=== PATIENT | female | born 1980 | race Caucasian/White ===

== ENCOUNTER 2023-09-23 07:26 | Outpatient (OUT) | payer MEDICARE, OTHER, MEDICAID, SELFPAY ==
[2023-09-23 09:29] LABS: Free T4 1.03 ng/dL (0.76-1.46)
[2023-09-23 09:38] LABS: Chol HDL Ratio 3.2; Cholesterol 254 mg/dL (<=200); Free T3 2.25 pg/mL (2.18-3.98); Glucose 77 mg/dL (74-106); HDL Cholesterol 80 mg/dL (40-60); Thyroid Stimulating Hormone 4.219 uIU/mL (0.358-3.740); Triglycerides 53 mg/dL (<=150); VLDL CHOLESTEROL 10.6 mg/dL
== END 2023-09-23 07:27 | disposition home or self-care (01) ==
LOC: LAB 07:26
PROVIDERS: PCP Family Medicine; Visit Provider Family Medicine
DX: E78.2 Mixed hyperlipidemia (principal); E06.3 Autoimmune thyroiditis; R73.01 Impaired fasting glucose; Z79.899 Other long term (current) drug therapy
CPT/HCPCS: 36415; 80061; 82947; 84439; 84443; 84481

== ENCOUNTER 2024-10-31 12:02 | Emergency (ER) | payer MEDICARE, OTHER, MEDICAID, SELFPAY ==
[2024-10-31 12:05] VITALS: BP 137/95; PULSE 76; TEMP 36.6; O2SAT 98; BMI 32.0
--- NOTE | 2024-10-31 12:05 | XR_ITS ---
The [address] [address] Patient Name: EZEQUIEL LEONE MRN: [id number] date: 1980 Sex: F Assigned Patient Location: ER Current Patient Location: ER Accession/Order Number: [id number] Exam Date: 10/31/2024 12:20 Report Date: 10/31/2024 13:12 At the request of: KARUNA KNUTSON Procedure: XR soft tissue neck EXAMINATION: XR chest 2V, XR soft tissue neck HISTORY: poss FB COMPARISON: No relevant comparison available. FINDINGS: LUNGS: No significant pulmonary parenchymal abnormalities. VASCULATURE: No increased pulmonary vasculature. PLEURA: No pneumothorax, effusion, or pleural thickening. CARDIAC: No cardiomegaly or cardiac silhouette abnormality. MEDIASTINUM: No visible mass or adenopathy. BONES: No fracture or visible bone lesion. OTHER: Unremarkable neck soft tissues. Reversal of normal lordotic curvature cervical spine. XR/XR soft tissue neck IMPRESSION: 1. No radiopaque foreign body within the neck soft tissues or chest. 2. No acute findings. Electronically authenticated by: SHASHANK CLINE Date: 10/31/2024 13:12
--- NOTE | 2024-10-31 12:05 | XR_ITS ---
The [address] [address] Patient Name: EZEQUIEL LEONE MRN: [id number] date: 1980 Sex: F Assigned Patient Location: ER Current Patient Location: ER Accession/Order Number: [id number] Exam Date: 10/31/2024 12:20 Report Date: 10/31/2024 13:12 At the request of: KARUNA KNUTSON Procedure: XR chest 2V EXAMINATION: XR chest 2V, XR soft tissue neck HISTORY: poss FB COMPARISON: No relevant comparison available. FINDINGS: LUNGS: No significant pulmonary parenchymal abnormalities. VASCULATURE: No increased pulmonary vasculature. PLEURA: No pneumothorax, effusion, or pleural thickening. CARDIAC: No cardiomegaly or cardiac silhouette abnormality. MEDIASTINUM: No visible mass or adenopathy. BONES: No fracture or visible bone lesion. OTHER: Unremarkable neck soft tissues. Reversal of normal lordotic curvature cervical spine. XR/XR chest 2V IMPRESSION: 1. No radiopaque foreign body within the neck soft tissues or chest. 2. No acute findings. Electronically authenticated by: SHASHANK CLINE Date: 10/31/2024 13:12
--- NOTE | 2024-10-31 12:13 | PC.NURSE ---
Patient is non verbal, per NH report patient was coughing and drooling. On arrival patient is sitting up on cot, awake and alert, no coughing, respirations even and non labored.
--- NOTE | 2024-10-31 12:24 | ED.GENADUL1 ---
HPI HPI - General Adult General Chief complaint: Shortness of Breath/Dyspnea Stated complaint: choking Time Seen by Provider: 10/31/24 12:05 Source: medical record Mode of arrival: ambulance History of Present Illness HPI narrative: Patient presents to ED after possible choking episode. Patient has developmental delay and she is at a care facility which is new to her. They are not really familiar with her. Apparently she had a coughing episode and they were concerned that maybe she was choking however after the coughing episode she has been completely fine. She is not hypoxic or in any distress. Patient is drooling but I did speak with the family and they said this is not abnormal for her to have drooling. Patient does not have any stridor or respiratory distress. No other complaints at this time. Patient is nonverbal Related Data Home Medications ?Medication ?Instructions ?Recorded ?Confirmed acetaminophen 325 mg tablet 650 mg PO Q6H PRN fever or pain 10/31/24 10/31/24 (Tylenol) benztropine 1 mg tablet 1 mg PO BID 10/31/24 10/31/24 melatonin 10 mg capsule 10 mg PO DAILY 10/31/24 10/31/24 miconazole nitrate 2 % topical 1 applic topical BID 10/31/24 10/31/24 powder (Antifungal (miconazole)) oxcarbazepine 150 mg tablet 150 mg PO BID 10/31/24 10/31/24 pravastatin 40 mg tablet 40 mg PO DAILY 10/31/24 10/31/24 temazepam 15 mg capsule (Restoril) 15 mg PO .QHS 10/31/24 10/31/24 topiramate 100 mg tablet 100 mg PO QAM 10/31/24 10/31/24 topiramate 200 mg tablet (Topamax) 200 mg PO QPM 10/31/24 10/31/24 Allergies Allergy/AdvReac Type Severity Reaction Status Date / Time No Known Drug Allergies Allergy Verified 10/31/24 12:14 Opioid HPI Opioid Management Most Recent Opioid Data: No Data to Display Review of Systems ROS Status of ROS 10 or more systems reviewed and unremarkable except as noted in history and below Exam Narrative Exam Narrative: Time Seen: [] Vital Signs: [Per nurse's notes.] General: [Alert] Skin: [Warm, dry, no rash.] Head: [Normocephalic, atraumatic.] Neck: [Supple, trachea midline.] Drooling Eye: [Pupils are equal, round and reactive to light, extraocular movements are intact, normal conjunctiva.] Ears, nose, mouth and throat: oral mucosa moist. No evidence of foreign body in the mouth or posterior pharynx on exam Cardiovascular: [Regular rate and rhythm, no murmur.] Respiratory: [Lungs are clear to auscultation, respirations are non-labored, breath sounds are equal.] Chest wall: [No tenderness, no deformity.] Gastrointestinal: [Soft, nontender, non distended, normal bowel sounds.] no focal neurological deficit observed.] Constitutional Vital Signs, click to edit/add: Last Vital Signs Temp 97.8 F 10/31/24 12:05 Pulse 76 10/31/24 12:05 Resp 18 10/31/24 12:05 BP 137/95 H 10/31/24 12:05 Pulse Ox 98 10/31/24 12:05 O2 Del Method Room Air 10/31/24 12:05 Course Vital Signs Vital signs: Vital Signs Temperature 97.8 F 10/31/24 12:05 Pulse Rate 76 10/31/24 12:05 Respiratory Rate 18 10/31/24 12:05 Blood Pressure 137/95 H 10/31/24 12:05 Pulse Oximetry 98 10/31/24 12:05 Oxygen Delivery Method Room Air 10/31/24 12:05 Temperature 97.8 F 10/31/24 12:05 Pulse Rate 76 10/31/24 12:05 Respiratory Rate 18 10/31/24 12:05 Blood Pressure 137/95 H 10/31/24 12:05 Pulse Oximetry 98 10/31/24 12:05 Oxygen Delivery Method Room Air 10/31/24 12:05 Medical Decision Making MDM Narrative Medical decision making narrative: I spoke to family and they state that patient does drool often. Her neck x-ray and chest x-ray were negative for any obvious acute obstructions. The patient has been comfortable no respiratory distress no hypoxia. No evidence of any airway obstruction. Patient will be sent back to her facility. Family was updated. Differential Diagnosis Differential Diagnosis: Airway obstruction esophageal obstruction cough Imaging Data Chest x-ray: Radiologist's impression: ITS Impressions Chest X-Ray 10/31/24 12:05 IMPRESSION: 1. No radiopaque foreign body within the neck soft tissues or chest. 2. No acute findings. Electronically authenticated by: SHASHANK CLINE Date: 10/31/2024 13:12 Soft Tissue Neck X-Ray 10/31/24 12:05 IMPRESSION: 1. No radiopaque foreign body within the neck soft tissues or chest. 2. No acute findings. Electronically authenticated by: SHASHANK CLINE Date: 10/31/2024 13:12 Discharge Plan Discharge Chief Complaint: Shortness of Breath/Dyspnea Clinical Impression: Coughing Patient Disposition: Home, Self-Care Time of Disposition Decision: 13:25 Condition: Good Mode of Transportation: EMS Prescriptions / Home Meds: No Action miconazole nitrate [Antifungal (miconazole)] 2 % powder 1 applic TOPICAL BID topiramate 100 mg tablet 100 mg PO QAM topiramate [Topamax] 200 mg tablet 200 mg PO QPM oxcarbazepine 150 mg tablet 150 mg PO BID temazepam [Restoril] 15 mg capsule 15 mg PO .QHS benztropine 1 mg tablet 1 mg PO BID acetaminophen [Tylenol] 325 mg tablet 650 mg PO Q6H PRN (Reason: fever or pain) melatonin 10 mg capsule 10 mg PO DAILY pravastatin 40 mg tablet 40 mg PO DAILY Print Language: Kazakh Instructions: Upper Respiratory Infection in Children (ED) Referrals: WILSON MENDOZA [Primary Care Provider] - 1 week
== END 2024-10-31 14:16 | disposition home or self-care (01) ==
PROVIDERS: Emergency Provider Emergency Medicine; PCP Family Medicine
DX: R05.9 Cough, unspecified (principal); R09.89 Other specified symptoms and signs involving the circulatory and respiratory systems; R62.50 Unspecified lack of expected normal physiological development in childhood
CPT/HCPCS: 70360; 71046; 99284

== ENCOUNTER 2025-02-05 15:00 | Emergency (ER) | payer MEDICARE, MEDICAID, SELFPAY ==
[2025-02-05 15:19] VITALS: PULSE 68; TEMP 36.9; O2SAT 98
[2025-02-05] MEDS: IBUPROFEN 600 MG TABLET PO (17:01)
--- NOTE | 2025-02-05 17:07 | ED_ITS ---
HPI HPI - Extremity Injury (Lower) General Chief Complaint: Extremity Injury, Lower Stated Complaint: Extremity Injury, Lower Time Seen by Provider: 02/05/25 15:27 Source: caregiver Mode of arrival: Wheelchair Limitations: no limitations History of Present Illness HPI Narrative: Patient is a 45-year-old female with a history of MRDD who presents to the emergency department with 2 caregivers from home for evaluation of an injury to the left foot and ankle that is believed to have taken place at daycare. Patient was walking normally this morning, daycare called the caregivers to say that the patient was not willing to bear weight on her left foot. They are unaware of any major falls or injuries and they have not noted any obvious deformities to the left lower extremity. No medications given prior to arrival. Patient is resting comfortably at initial interview at [facility] Related Data Home Medications ?Medication ?Instructions ?Recorded ?Confirmed acetaminophen 325 mg tablet 650 mg PO Q6H PRN fever or pain 10/31/24 10/31/24 (Tylenol) benztropine 1 mg tablet 1 mg PO BID 10/31/24 10/31/24 melatonin 10 mg capsule 10 mg PO DAILY 10/31/24 10/31/24 miconazole nitrate 2 % topical 1 applic topical BID 10/31/24 10/31/24 powder (Antifungal (miconazole)) oxcarbazepine 150 mg tablet 150 mg PO BID 10/31/24 10/31/24 pravastatin 40 mg tablet 40 mg PO DAILY 10/31/24 10/31/24 temazepam 15 mg capsule (Restoril) 15 mg PO .QHS 10/31/24 10/31/24 topiramate 100 mg tablet 100 mg PO QAM 10/31/24 10/31/24 topiramate 200 mg tablet (Topamax) 200 mg PO QPM 10/31/24 10/31/24 Allergies Allergy/AdvReac Type Severity Reaction Status Date / Time No Known Drug Allergies Allergy Verified 02/05/25 15:26 Opioid HPI Opioid Management Most Recent Pain and Opioid Data: Last JAN Pain Assessment 02/05/25 17:01 Review of Systems ROS Status of ROS unobtainable due to medical condition and unobtainable due to mental status Exam Narrative Exam Narrative: Gen.: Awake, alert, in no distress, sitting comfortably in bed Head: Normocephalic, atraumatic ENT: Moist mucous membranes Respiratory: No respiratory distress Extremities: Patient actively flexes the left foot away from me during exam, 2+ left DP pulse noted. No grimacing or guarding with palpation of the left foot, proximal tibia. No swelling or ecchymosis noted. Psych: Normal mood and affect Neuro: No focal neuro deficit, at baseline Skin: Warm, dry, intact Constitutional Vital Signs, click to edit/add: Last Vital Signs Temp 98.5 F 02/05/25 15:19 Pulse 68 02/05/25 15:19 Resp 18 02/05/25 15:19 Pulse Ox 98 02/05/25 15:19 O2 Del Method Room Air 02/05/25 15:19 Course Vital Signs Vital signs: Vital Signs Temperature 98.5 F 02/05/25 15:19 Pulse Rate 68 02/05/25 15:19 Respiratory Rate 18 02/05/25 15:19 Pulse Oximetry 98 02/05/25 15:19 Oxygen Delivery Method Room Air 02/05/25 15:19 Temperature 98.5 F 02/05/25 15:19 Pulse Rate 68 02/05/25 15:19 Respiratory Rate 18 02/05/25 15:19 Pulse Oximetry 98 02/05/25 15:19 Oxygen Delivery Method Room Air 02/05/25 15:19 MDM - Extremity Injury (Lower) MDM Narrative Medical decision making narrative: Patient's exam is limited as she is noncommunicative although there are no physical exam findings concerning for major injury. She is at her mental baseline. X-rays of the foot and tib-fib show soft tissue swelling in the foot and ankle with no evidence of acute fracture. Patient treated with Motrin, placed in an Alberto wrap and remains neurovascularly intact. Rest, ice, elevate. Caregivers have a wheelchair at home to aid with ambulation until the patient feels better. Continue Motrin every 6 hours and return to the ER if symptoms change or worsen SUPERVISED APC VISIT, PHYSICIAN ATTESTATION: Based on the medical record the care appears appropriate. ? Medical Records Attestation: I reviewed the patient's medical records. Imaging Data XR left foot/tib-fib: Attestation: I have reviewed the pertinent imaging results. Discharge Plan Discharge Chief Complaint: Extremity Injury, Lower Clinical Impression: Pain in left lower leg Patient Disposition: Home, Self-Care Time of Disposition Decision: 17:10 Condition: Good Prescriptions / Home Meds: No Action miconazole nitrate [Antifungal (miconazole)] 2 % powder 1 applic TOPICAL BID topiramate 100 mg tablet 100 mg PO QAM topiramate [Topamax] 200 mg tablet 200 mg PO QPM oxcarbazepine 150 mg tablet 150 mg PO BID temazepam [Restoril] 15 mg capsule 15 mg PO .QHS benztropine 1 mg tablet 1 mg PO BID acetaminophen [Tylenol] 325 mg tablet 650 mg PO Q6H PRN (Reason: fever or pain) melatonin 10 mg capsule 10 mg PO DAILY pravastatin 40 mg tablet 40 mg PO DAILY Print Language: Bulgarian Instructions: Leg Pain (ED) Referrals: WILSON MENDOZA [Primary Care Provider] - 1 week
== END 2025-02-05 17:33 | disposition home or self-care (01) ==
PROVIDERS: Emergency Provider Emergency Medicine; PCP Family Medicine
DX: M79.662 Pain in left lower leg (principal); F79 Unspecified intellectual disabilities
CPT/HCPCS: 73590; 73630; 99284

== ENCOUNTER 2025-05-07 16:04 | Emergency (ER) | payer MEDICARE, OTHER, MEDICAID, SELFPAY ==
[2025-05-07] VITALS (45 sets, daily range): BP systolic 99–132; BP diastolic 65–89; PULSE 101–147; TEMP 36.6; O2SAT 65–100; BMI 47.6
--- NOTE | 2025-05-07 16:12 | ECG_ITS ---
The [facility] Test Date: 2025-05-07 Pat Name: EZEQUIEL LEONE Department: Room: - Gender: Female Education Coordinator: : 1980 Requested By: 1030 Order Number: [id number] Reading MD: KODAK WEBSTER M.D. Measurements Intervals [place] Rate: 135 P: 70 IN: 140 QRS: 28 QRSD: 86 T: 103 QT: 360 QTc: 439 Interpretive Statements 1120 Sinus tachycardia [address] depression [place] abnormality, possible inferolateral ischemia 9150 abnormal ECG No previous ECG available for comparison Electronically Signed On 05-07-2025 21:57:53 EDT by KODAK WEBSTER M.D.
--- NOTE | 2025-05-07 16:13 | ED.GENADUL1 ---
HPI HPI - General Adult General Chief complaint: Shortness of Breath/Dyspnea Stated complaint: sob Time Seen by Provider: 05/07/25 16:06 History of Present Illness HPI narrative: 45-year-old female presents for cough and some difficulty breathing. She is unable to give any history because of previous medical issues. A caregiver accompanies her and gives all the history. The patient lives at a half-way. Yesterday she was noted to be coughing. She has not had a known fever. Caregiver states she looks pale. No further history is obtainable from the patient. Related Data Home Medications ?Medication ?Instructions ?Recorded ?Confirmed acetaminophen 325 mg tablet 650 mg PO Q6H PRN fever or pain 10/31/24 10/31/24 (Tylenol) benztropine 1 mg tablet 1 mg PO BID 10/31/24 10/31/24 melatonin 10 mg capsule 10 mg PO DAILY 10/31/24 10/31/24 miconazole nitrate 2 % topical 1 applic topical BID 10/31/24 10/31/24 powder (Antifungal (miconazole)) oxcarbazepine 150 mg tablet 150 mg PO BID 10/31/24 10/31/24 pravastatin 40 mg tablet 40 mg PO DAILY 10/31/24 10/31/24 temazepam 15 mg capsule (Restoril) 15 mg PO .QHS 10/31/24 10/31/24 topiramate 100 mg tablet 100 mg PO QAM 10/31/24 10/31/24 topiramate 200 mg tablet (Topamax) 200 mg PO QPM 10/31/24 10/31/24 Allergies Allergy/AdvReac Type Severity Reaction Status Date / Time No Known Drug Allergies Allergy Verified 05/07/25 16:08 Review of Systems ROS Narrative A ten point review of systems is negative except as noted above. Exam Narrative Exam Narrative: Nurses note and vital signs reviewed and patient is not hypoxic. General: The patient appears no apparent distress. Skin: Warm, dry, pallor noted. There is no rash noted. Head: Normocephalic, atraumatic Eye: Normal conjunctiva, no drainage Ears, Nose, Mouth, and Throat: oral mucosa is moist. Nares patent. Cardiovascular: Regular Rate and Rhythm, tachycardic Respiratory: Patient is in no distress, no accessory muscle use, lungs are clear to auscultation, no wheezing, rales or rhonchi Back: non-tender GI: Soft and nontender Musculoskeletal: The patient has no evidence of calf tenderness, no pitting edema, symmetrical pulses noted bilaterally Neurological: Awake and looking around the room. Nonverbal. Baseline according to caregiver Psychiatric: Cannot be assessed Constitutional Vital Signs, click to edit/add: Last Vital Signs Temp 97.8 F 05/07/25 16:10 Pulse 111 H 05/07/25 17:50 Resp 24 H 05/07/25 16:30 BP 116/73 05/07/25 17:30 Pulse Ox 94 L 05/07/25 17:50 O2 Del Method Room Air 05/07/25 16:10 Course Vital Signs Vital signs: Vital Signs Temperature 97.8 F 05/07/25 16:10 Pulse Rate 147 H 05/07/25 16:10 Respiratory Rate 20 05/07/25 16:10 Blood Pressure 132/89 05/07/25 16:10 Pulse Oximetry 98 05/07/25 16:10 Oxygen Delivery Method Room Air 05/07/25 16:10 Temperature 97.8 F 05/07/25 16:10 Pulse Rate 111 H 05/07/25 17:50 Respiratory Rate 24 H 05/07/25 16:30 Blood Pressure 116/73 05/07/25 17:30 Pulse Oximetry 94 L 05/07/25 17:50 Oxygen Delivery Method Room Air 05/07/25 16:10 Medical Decision Making MDM Narrative Medical decision making narrative: Chest x-ray shows no acute findings. CT scan is pending and the patient is signed out to Dr. Vasquez at change of shift Differential Diagnosis Differential Diagnosis: Pneumonia, COVID, PE Lab Data Lab results reviewed: Yes I reviewed the patient's lab results Labs: Lab Results 05/07/25 05/07/25 05/07/25 Range/Units 16:28 16:35 16:58 WBC 12.1 H (4.0-11.0) 10^3/uL RBC 4.35 (4.20-5.40) 10^6/uL Hgb 12.9 (12.0-16.0) g/dL Hct 39.6 (36.0-48.0) % MCV 91.0 (81.0-99.0) fL MCH 29.7 (26.7-34.0) pg MCHC 32.6 (29.9-35.2) g/dL RDW 13.9 (11.0-15.0) % Plt Count 138 L (150-450) 10^3/uL MPV 10.8 (9.5-13.5) fL Seg Neuts % (Manual) 90.0 H (43.0-75.0) Lymphocytes % (Manual) 3.0 L (20.5-60.0) % Monocytes % (Manual) 4.0 (1.7-12.0) % Eosinophils % (Manual) 3.0 (0.9-7.0) % Basophils % (Manual) 0.0 L (0.2-2.0) % Neutrophils # (Manual) 10.89 H (1.4-6.5) 10^3/uL Lymphocytes # (Manual) 0.36 L (1.20-3.80) 10^3/uL Monocytes # (Manual) 0.48 (0.30-0.80) 10^3/uL Eosinophils # (Manual) 0.36 (0.00-0.70) 10^3/uL Basophils # (Manual) 0.00 (0.00-0.10) 10^3/uL Sodium 141 (136-145) mmol/L Potassium 3.6 (3.5-5.1) mmol/L Chloride 104 (98-107) mmol/L Carbon Dioxide 22.9 (21.0-32.0) mmol/L Anion Gap 17.7 BUN 18.0 (7.0-18.0) mg/dL Creatinine 0.79 (0.55-1.02) mg/dL Est GFR ( Amer) >60 (>=60 mL/min/1.73m^2) Est GFR (Non-Af Amer) >60 (>=60 mL/min/1.73m^2) BUN/Creatinine Ratio 22.8 Glucose 129 H (74-106) mg/dL Calcium 8.9 (8.5-10.1) mg/dL Troponin I High Sens 6.9 (4.0-51.3) pg/mL Urine Color Yellow (YELLOW) Urine Clarity Clear (CLEAR) Urine pH 6.0 (5.0-9.0) Ur Specific Mobile 1.025 (1.005-1.025) Urine Protein 30 A (NEG/TRACE) mg/dL Urine Glucose (UA) Negative (NEGATIVE) mg/dL Urine Ketones Trace A (NEGATIVE) mg/dL Urine Occult Blood Negative (NEGATIVE) Urine Nitrite Negative (NEGATIVE) Urine Bilirubin Negative (NEGATIVE) Urine Urobilinogen 2.0 A (0.2-1.0) EU/dL Ur Leukocyte Esterase Negative (NEGATIVE) Urine RBC 0-2 (0-2) #/HPF Urine WBC 0-2 A (NONE SEEN) #/HPF Ur Squamous Epith Cells Rare (NONE/RARE) #/LPF Urine Crystals None seen (None Seen) #/HPF Urine Bacteria Trace A (NONE SEEN) #/HPF Urine Casts None seen (NONE SEEN) #/LPF Urine Mucus Trace A (NONE SEEN) Ur Culture Indicated? No SARS-CoV-2 Ag (CV2AG) Negative (NEGATIVE) Imaging Data Chest x-ray: Radiologist's impression: No definite acute airspace disease ECG Data Attestation: I personally reviewed and interpreted this ECG as follows: (EKG on my interpretation shows sinus tachycardia with a rate of 135) Discharge Plan Discharge Patient Disposition: Still a Patient
--- NOTE | 2025-05-07 16:54 | XR_ITS ---
The [address] [address] Patient Name: EZEQUIEL LEONE MRN: [id number] date: 1980 Sex: F Assigned Patient Location: ED.MAIN Current Patient Location: ED.MAIN Accession/Order Number: [id number] Exam Date: 05/07/2025 16:56 Report Date: 05/07/2025 16:57 At the request of: SUKUMAR GANT MD Procedure: XR chest 1V PA CHEST: CLINICAL HISTORY: SOB COMPARISON: 10/31/2024 Hypoventilatory changes. Minimal hazy opacities likely due to the hypoventilatory changes. Otherwise unremarkable cardiomediastinal. Lungs clear. No effusion or pneumothorax. IMPRESSION: Hypoventilatory changes. No definite airspace disease. Impression dictated by: Jimmy Burgos M.D. 05/07/2025 4:57 PM Dictation Location: [place] [address] Electronically authenticated by: [id number] Y Date: 05/07/2025 16:57
[2025-05-07 16:56] LABS: Hematocrit 39.6 % (36.0-48.0); Hemoglobin 12.9 g/dL (12.0-16.0); Mean Corpuscular HGB Conc 32.6 g/dL (29.9-35.2); Mean Corpuscular Hemoglobin 29.7 pg (26.7-34.0); Mean Platelet Volume 10.8 fL (9.5-13.5); Platelet Count 138 10^3/uL (150-450); Red Blood Count 4.35 10^6/uL (4.20-5.40); Red Cell Distribution Width 13.9 % (11.0-15.0); White Blood Count 12.1 10^3/uL (4.0-11.0)
[2025-05-07 17:09] LABS: Bilirubin Urine NEGATIVE (NEGATIVE); Blood Urine NEGATIVE (NEGATIVE); Clarity Urine CLEAR (CLEAR); Color Urine YELLOW (YELLOW); Glucose Urine UA NEGATIVE (NEGATIVE); Ketones Urine TRACE mg/dL (NEGATIVE); Leukocyte Esterase Urine NEGATIVE (NEGATIVE); Nitrite Urine NEGATIVE (NEGATIVE); Protein Urine 30 mg/dL (NEG/TRACE); Specific Gravity Urine 1.025 (1.005-1.025)
[2025-05-07 17:11] LABS: Anion Gap 17.7; BUN Creatinine Ratio 22.8; Calcium 8.9 mg/dL (8.5-10.1); Carbon Dioxide 22.9 mmol/L (21.0-32.0); Chloride 104 mmol/L (98-107); Estimated GFR (African America >60 (>=60 mL/min/1.73m^2); Estimated GFR (Non-African Ame >60 (>=60 mL/min/1.73m^2); Glucose 129 mg/dL (74-106); Potassium 3.6 mmol/L (3.5-5.1); Sodium 141 mmol/L (136-145); Troponin I High Sensitivity 6.9 pg/mL (4.0-51.3)
[2025-05-07 17:14] LABS: Eosinophils Absolute Manual 0.36 10^3/uL (0.00-0.70); Lymphocytes Absolute Manual 0.36 10^3/uL (1.20-3.80); Monocytes Absolute Manual 0.48 10^3/uL (0.30-0.80); Segmented Neut Absolute Manual 10.89 10^3/uL (1.4-6.5)
[2025-05-07 17:21] LABS: Internal Control Within Normal Limits; SARS-CoV-2 Ag NEGATIVE (NEGATIVE)
[2025-05-07 17:30] LABS: Bacteria Urine TRACE #/HPF (NONE SEEN); Cast Seen? NONE SEEN #/LPF (NONE SEEN); Crystals Seen? None Seen #/HPF (None Seen); Mucus Urine TRACE (NONE SEEN); RBC Urine 0-2 #/HPF (0-2); Squamous Epithelial Cell Urine RARE #/LPF (NONE/RARE); Urine Culture Indicated NO; WBC Urine 0-2 #/HPF (NONE SEEN)
[2025-05-07] MEDS: IPRATROPIUM/ALBUTEROL SULFATE 3 ML AMPUL.NEB IH (19:36)
[2025-05-07] MEDS: METHYLPREDNISOLONE SOD SUCC PF 40 MG/ML VIAL IVP (19:43)
[2025-05-07] MEDS: 0.9 % SODIUM CHLORIDE 1,000 ML 1000 ML IV (20:50)
== END 2025-05-07 22:15 | disposition home or self-care (01) ==
PROVIDERS: Emergency Medicine; Emergency Provider Emergency Medicine; PCP Family Medicine
DX: J20.9 Acute bronchitis, unspecified (principal); R06.2 Wheezing
CPT/HCPCS: 36415; 71045; 71275; 80048; 81001; 84484; 85007; 85027; 87811; 93005; 94640; 96374; 99284; J2919; Q9967